=== PATIENT | male | born 1955 | race Caucasian/White ===

== ENCOUNTER 2017-12-31 01:44 | Inpatient (IN) | payer BC, OTHER ==
[2017-12-31] VITALS (13 sets, daily range): BP systolic 96–227; BP diastolic 68–154
[~2017-12-31] VITALS: Ht 165.1 cm; Wt 50.3 kg
[2017-12-31 02:22] LABS: ABSOLUTE BASOPHILS 0.1 thou/uL (0.0-0.2); ABSOLUTE EOSINOPHILS 0.2 thou/uL (0.0-0.7); ABSOLUTE LYMPHOCYTES 4.3 thou/uL (0.8-5.3); ABSOLUTE NEUTROPHILS 9.6 thou/uL (1.6-8.1); BASOPHILS 0.4 %; EOSINOPHILS 1.2 %; HEMOGLOBIN 15.1 gm/dL (14.0-18.0); LYMPHOCYTES 28.4 %; MCH 27.4 pg (26.0-34.0); MCHC 32.1 g/dL (28.0-37.0); MCV 85.3 fL (80.0-100.0); MONOCYTES 6.8 %; MPV 8.7 fl. (7.2-11.1); NUCLEATED RBCS 0 /100WBC; PLATELET COUNT* 221 thou/uL (150-400); POLYS 63.2 %; RBC 5.51 mil/uL (4.50-6.00); RDW-CV 15.8 % (10.5-14.5); WBC 15.1 thou/uL (4.0-11.0)
[2017-12-31] MEDS ORDERED: REQUIP 0.25 M0.25 M1 PO (02:23)
[2017-12-31] MEDS ORDERED: CLONAZEPAM 0.50.5 M1 PO (02:23)
[2017-12-31] MEDS ORDERED: ZOCOR20 MG PO (02:23)
[2017-12-31] MEDS ORDERED: CARVEDILOL6.25 M1 PO (02:24)
[2017-12-31] MEDS ORDERED: DULERA 200 MCG/13 GM INH (02:24)
[2017-12-31] MEDS ORDERED: NORVASC5 MG PO (02:24)
[2017-12-31] MEDS ORDERED: VENTOLIN HFA 1818 GM INH (02:24)
[2017-12-31] MEDS ORDERED: ALBUTEROL2.5 MG/31 INH (02:25)
[2017-12-31 02:40] LABS: INR 1.1; PROTIME 10.8 Seconds (9.20-11.50)
[2017-12-31 02:44] LABS: ANION GAP 9 mmol/L (7-16); BUN 20 mg/dL (7-18); CALCIUM 8.9 mg/dL (8.5-10.1); CHLORIDE 102 mmol/L (98-107); CO2 27 mmol/L (21-32); CREATININE 1.1 mg/dL (0.6-1.3); GLUCOSE 232 mg/dL (70-99); POTASSIUM 4.2 mmol/L (3.5-5.1); SODIUM 138 mmol/L (136-145)
[2017-12-31 02:55] LABS: ALBUMIN 3.6 g/dL (3.4-5.0); ALKALINE PHOSPHATASE 175 U/L (46-116); NT-PRO BRAIN NAT PEPTIDE 5904 pg/mL (<300); SGOT 51 U/L (15-37); SGPT 37 U/L (30-65); TOTAL BILIRUBIN 0.7 mg/dL (<0.1-1.0); TOTAL PROTEIN 7.5 g/dL (6.4-8.2); TROPONIN-I LEVEL <0.06 ng/mL (<0.06)
[2017-12-31 02:55] LABS: URINE BILIRUBIN NEGATIVE (Negative); URINE BLOOD 1+ (Negative); URINE CLARITY CLEAR; URINE COLOR YELLOW; URINE GLUCOSE-RANDOM 1+ (Negative); URINE KETONES NEGATIVE (Negative); URINE LEUKOCYTES-REFLEX NEGATIVE (Negative); URINE NITRITE-REFLEX NEGATIVE (Negative); URINE PROTEIN 3+ (Negative); URINE SPECIFIC GRAVITY 1.025 (1.005-1.030)
[2017-12-31 03:25] LABS: BE -5.2 mmol/L (-2 to +3); HCO3 23.4 mmol/L (22.0-26.0)
[2017-12-31 03:26] LABS: PCO2 59.1 mmHg (35.0-45.0); PO2 > 488.8 mmHg (75.0-100.0); pH 7.215 (7.340-7.450)
[2017-12-31 04:19] LABS: FINE GRANULAR CASTS 4-10 Moderate /LPF (None Seen); SQUAMOUS 0-3 Few /LPF (0-3)
[2017-12-31 04:20] LABS: URINE RBC 3-10 Few /HPF (0-2); URINE WBC-REFLEX 6-15 Few /HPF (0-5)
[2017-12-31 04:21] LABS: BACTERIA-REFLEX 1-9 Few /HPF (None Seen); CRYSTALS None Seen /LPF (None Seen)
--- NOTE | 2017-12-31 10:24 | EKG ---
[place] [address] ELECTROCARDIOGRAM REPORT Name: MIKA GONZALES Room: [address] ADM IN M.R.#: [id number] Admission: 12/31/17 Attend Phys: Aditya Vila, Discharge: Date of : 59 Report #: [id number] THIS REPORT FOR: //name// [facility] ED Test Date: 2017-12-31 Test Time: 01:49:12 Pat Name: MIKA GONZALES Department: Room: [facility] Gender: M Photo Stylist: : 1955 Requested By: Elizabeth Mccauley Order Number: [id number] MD: Moris Mir Measurements Intervals [place] Rate: 150 P: 88 [place]: 125 QRS: 86 QRSD: 89 T: -65 QT: 279 QTc: 441 Interpretive Statements Sinus tachycardia LAE, consider biatrial enlargement Borderline right axis deviation Abnormal R-wave progression, late transition Probable left ventricular hypertrophy Abnormal T, consider ischemia, inferior leads Borderline ST elevation, lateral leads No previous ECG available for comparison Electronically Signed On 12-31-2017 10:24:42 DIRECTOR OF SEARCH ENGINE MARKETING by Moris Mir [email or web address] <ELECTRONICALLY SIGNED> By: Moris Mir MD, FACC 12/31/17 [phone] Moris Mir MD, FAC /EPI
[2017-12-31 13:13] LABS: BE -2.4 mmol/L (-2 to +3); HCO3 23.7 mmol/L (22.0-26.0); PCO2 45.9 mmHg (35.0-45.0); PO2 92.2 mmHg (75.0-100.0); pH 7.331 (7.340-7.450)
--- NOTE | 2017-12-31 17:37 | NUR ---
PT CARE ASSUMED AFTER REPORT. SR ON MONITOR. PT ON VENTILATOR AND SEDATED. OG TO BRITNI. NICO TO DD. RESTRAINTS TO BILAT UE. PASSIVE ROM GIVEN. FALL PRECAUTIONS IN PLACE. SLOW TO PROGRESS TOWARDS GOALS.
[2018-01-01] VITALS (24 sets, daily range): BP systolic 130–185; BP diastolic 61–102
[2018-01-01 02:29] LABS: HEMATOCRIT 37.1 % (42.0-52.0); MCH 27.4 pg (26.0-34.0); MCHC 32.7 g/dL (28.0-37.0); MCV 83.8 fL (80.0-100.0); MPV 8.2 fl. (7.2-11.1); NUCLEATED RBCS 0 /100WBC; PLATELET COUNT* 171 thou/uL (150-400); RBC 4.43 mil/uL (4.50-6.00); RDW-CV 15.3 % (10.5-14.5); WBC 6.8 thou/uL (4.0-11.0)
[2018-01-01 02:33] LABS: HEMOGLOBIN 12.1 gm/dL (14.0-18.0)
[2018-01-01 02:41] LABS: PHOSPHORUS* 4.6 mg/dL (2.5-4.9)
[2018-01-01 02:45] LABS: ALBUMIN 2.7 g/dL (3.4-5.0); CALCIUM 8.8 mg/dL (8.5-10.1); CREATININE 1.2 mg/dL (0.6-1.3); MAGNESIUM 1.6 mg/dL (1.8-2.4); TOTAL BILIRUBIN 0.4 mg/dL (<0.1-1.0); TOTAL PROTEIN 5.9 g/dL (6.4-8.2)
[2018-01-01 05:06] LABS: ABSOLUTE LYMPHOCYTES 0.3 thou/uL (0.8-5.3); ABSOLUTE MONOCYTES 0.1 thou/uL (0.0-1.2); ABSOLUTE NEUTROPHILS 6.4 thou/uL (1.6-8.1); ATYPICAL LYMPHS 1 %
[2018-01-01 05:07] LABS: ANISOCYTOSIS 1+; PLATELET ESTIMATE ADEQUATE
[2018-01-01 08:51] LABS: HCO3 24.2 mmol/L (22.0-26.0); PO2 108.8 mmHg (75.0-100.0)
--- NOTE | 2018-01-01 11:00 | NUR ---
PT ADMITTED YESTERDAY WITH RESP FAILURE, WAS INTUBATED IN THE E.D. AND REMAINS ON THE VENT. SPOKE WITH AT BEDSIDE, EXPLAINED ROLE OF CASE MGT. SHE SAID SHE HAS NO QUESTIONS ABOUT PLAN OF CARE. PT HAS HOME O2 FROM [facility]. SAID SHE NEEDS TO BE AT AN APPT IN THE MORNING BUT HER SON WILL COME SIT WITH PATIENT.
--- NOTE | 2018-01-01 11:24 | NUR ---
Nutrition: Pt assessed for Rocael score 11. On vent, propofol at 13cc. OG to LIS. Solumedrol. BG 140, alb 2.7, TG 76. H/o COPD, PVD, smoker, recent PNA. Admitted with SOA. ?malignancy in Rt lung. Per ICU rounds, possible extubation today. RD will follow POC and give nutrition support recs if needed, follow up 01/02/18.
--- NOTE | 2018-01-01 12:42 | CON ---
[address] [address] CONSULTATION Name: MIKA GONZALES Room: [address] IN M.R.#: [id number] Admission: 12/31/17 Attend Phys: Aditya Vila, Discharge: Date of : 59 Report #: [id number] THIS REPORT FOR: //name// CC: Kiel Vila DATE OF SERVICE: 12/31/2017 REQUESTING PHYSICIAN: Carson Villar MD HISTORY OF PRESENT ILLNESS: The patient is a 62-year-old gentleman admitted with acute respiratory failure secondary to COPD exacerbation, currently on the ventilator, unable to provide further history. He is ventilating and oxygenating adequately, is sedated with high dose propofol at 80, takes clonazepam at home. There is a mass-like lesion noted at the right lung apex on the CT chest. PAST MEDICAL HISTORY: COPD, hyperlipidemia, hypertension. Further details of COPD, not available. SOCIAL HISTORY: Active smoker. CURRENT MEDICATIONS: List in [facility] reviewed. HOME MEDICATIONS: List in [facility] reviewed. Also see discussion above. ALLERGIES: No known drug allergies. PHYSICAL EXAMINATION: GENERAL: The patient is deeply sedated on RASS 3 to RASS -4. Vitals in the records reviewed. Ventilator settings reviewed. Endotracheal tube was in good position. NECK: Does not show raised JVP. CHEST: Breath sounds decreased, but equal bilaterally. HEART: Regular, no murmur. ABDOMEN: Soft and nontender. EXTREMITIES: Lower extremities: No edema, no calf tenderness. IMAGING: CT chest films as well as reports reviewed. LABORATORY DATA: The patient's lab work including arterial blood gas consistent with rytcj-sx-gqaoxqy hypercarbic respiratory failure in [facility] reviewed. ASSESSMENT AND PLAN: 1. Eeplz-lo-frpuplk hypercarbic respiratory failure. I recommend that we should go ahead and repeat arterial blood gas now and [place] [address] CONSULTATION Name: MIKA GONZALES TRINY Room: [address] IN [facility].#: [id number] Admission: 12/31/17 Attend Phys: Aditya Vila, Discharge: Date of : 59 Report #: [id number] We will like to being propofol infusion down to at least below 50 if possible. Therefore, p.r.n. Versed and fentanyl are ordered. 2. Chronic obstructive pulmonary disease exacerbation. He remains on Solu-Medrol, as well as nebulized bronchodilators. We will continue. 3. Pulmonary infiltrates. Small pulmonary infiltrates are noted. The patient is on Zosyn as well as Levaquin. Levaquin, I understand, is ordered to be switched to p.o. tomorrow if the patient remains on the ventilator. We will consider still keeping it IV. However, if the patient's condition improves, it may be possible to discontinue Zosyn and cut down to one antibiotic only. If culture from sputum has not already been performed, then I recommend the same. 4. Large lung nodules/lung mass. This is noted at the right lung apex, could be an area of scar, as well as infiltrate, as well as malignancy. The patient will be high risk for performing a biopsy. Options include either doing a followup CT or obtaining a PET scan. Perhaps, I would favor obtaining a PET scan shortly after recovery from current episode. 5. Deep venous thrombosis prophylaxis, Lovenox. 6. Gastrointestinal prophylaxis: Protonix is ordered as a tablet, which is not absorbed if crushed and therefore, I switched it to IV for now. 7. Fluid and electrolytes. The patient currently is on IV fluids at 130 mL an hour. While he does not appear to be fluid overloaded, I favor cutting down and fluid rate soon to avoid development of fluid overload. We will also check an echocardiogram. The patient is critically ill at this time. Total time spent for this critically ill patient today is 35 minutes. <ELECTRONICALLY SIGNED> By: Frances Valverde MD 01/01/18 1242 1031 0018Akan Banda MD /nt
--- NOTE | 2018-01-01 14:41 | NUR ---
WOUND NURSE: PER STAFF NURSE PATIENT HAS NO WOUNDS AND BILL SCALE TRIGGERED WOUND CONSULT. PATIENT IS ON LOW AIRLOSS MATTERESS AND TURN SCHEDULE.
--- NOTE | 2018-01-01 16:54 | 2DMMODE ---
[place] [address] 2 D/M-MODE ECHOCARDIOGRAM Name: MIKA GONZALES Room: [facility] IN [facility]#: [id number] Admission: 12/31/17 Attend Phys: Aditya Diggs Discharge: Date of : 59 Date of Service: 01/01/18 1654 Report #: [id number] THIS REPORT FOR: //name// APPROVED REPORT Study performed: 01/01/2018 10:22:15 EXAM: Comprehensive 2D, Doppler, and color-flow Echocardiogram Patient Location: In-Patient Room #: [facility] Status: routine BSA: 1.56 HR: 78 bpm BP: 180/102 mmHg Rhythm: NSR Other Information Study Quality: Good Indications Dyspnea 2D Dimensions IVSd: 10.36 (7-11mm) LVOT Diam: 24.70 (18-24mm) LVDd: 48.86 mm PWd: 11.85 (7-11mm) Ascending Ao: 26.91 (22-36mm) LVDs: 37.05 (25-40mm) Aortic Root: 32.56 mm Volumes Left Atrial Volume (Systole) LA ESV Index: 30.20 mL/m2 Aortic Valve AoV Peak Ar.: 3.17 m/s AO Peak Gr.: 40.29 mmHg LVOT Max P.36 mmHg AO Mean Gr.: 23.72 mmHg LVOT Mean P.74 mmHg LVOT Max V: 0.58 m/s AO V2 VTI: 65.73 cm LVOT Mean V: 0.40 m/s DELFINO (VTI): 1.03 cm2 LVOT V1 VTI: 14.15 cm Mitral Valve E/A Ratio: 0.70 MV Decel. Time: 203.05 ms MV E Max Ar.: 0.51 m/[place] [address] 2 D/M-MODE ECHOCARDIOGRAM Name: MIKA GONZALES Room: [address] IN .R.#: [id number] Admission: 12/31/17 Attend Phys: Aditya Diggs Discharge: Date of : 59 Date of Service: 01/01/18 1654 Report #: [id number] MV PHT: 58.88 ms MVA (PHT): 3.74 cm2 TDI E/Lateral E': 7.29 E/Medial E': 8.50 Medial E' Ar.: 0.06 m/s Lateral E' Ar.: 0.07 m/s Pulmonary Valve PV Peak Ar.: 0.64 m/s PV Peak Gr.: 1.65 mmHg Tricuspid Valve RAP Estimate: 10.00 mmHg TR Peak Gr.: 33.85 mmHg RVSP: 43.00 mmHg PA Pressure: 43.00 mmHg Left Ventricle The left ventricle is normal size. There is normal LV segmental wall motion. Moderate concentric left ventricular hypertrophy. Left ventricular systolic function is mildly decreased. LVEF is 45%. Grade I - abnormal relaxation pattern. Right Ventricle The right ventricle is normal size. The right ventricular systolic function is normal. Atria The left atrium size is normal. The right atrium size is normal. Aortic Valve Moderate aortic valve sclerosis. Trace aortic regurgitation. Mild to moderate aortic stenosis. Mitral Valve The mitral valve is normal in structure. Mild mitral regurgitation. No evidence of mitral valve stenosis. Tricuspid Valve The tricuspid valve is normal in structure. Mild tricuspid regurgitation. Moderate pulmonary hypertension. Pulmonic Valve The pulmonary valve is normal in structure. There is no pulmonic [place] [address] 2 D/M-MODE ECHOCARDIOGRAM Name: MIKA GONZALES Room: [address] IN [facility]#: [id number] Admission: 12/31/17 Attend Phys: Aditya Diggs Discharge: Date of : 59 Date of Service: 01/01/18 1654 Report #: [id number] Great Vessels The aortic root is normal in size. IVC is dilated. Pericardium There is no pericardial effusion. <Conclusion> The left ventricle is normal size. Moderate concentric left ventricular hypertrophy. Left ventricular systolic function is mildly decreased. LVEF is 45%. Grade I - abnormal relaxation pattern. The right ventricle is normal size. The left atrium size is normal. Moderate aortic valve sclerosis. Trace aortic regurgitation. Mild to moderate aortic stenosis. The mitral valve is normal in structure. Mild mitral regurgitation. The tricuspid valve is normal in structure. IVC is dilated. There is no pericardial effusion. There is normal LV segmental wall motion. <ELECTRONICALLY SIGNED> By: Ben Resendez MD, [facility] 01/01/181653 53 53 Ben Resendez MD, FACC /INF
--- NOTE | 2018-01-01 18:44 | NUR ---
PT ASSESSMENT CHARTED. VSS THROUGHOUT SHIFT. Q2H TURNS TO MAINTAIN SKIN INTEGRITY. LOW AIRLOSS ON BED AND WOUND CONSULT PLACED. SKIN IS CLEAN, DRY AND INTACT. PT DID NOT APPEAR TO BE IN ANY PAIN. SEDATION VACATION THIS MORNING, PT OPENED EYES AND SQUEEZED HANDS APPROPRIATLEY. WEANING TRIAL SCHEDULED FOR MORNING. FAMILY AT THE BEDSIDE THROUGHOUT THE SHIFT.
[2018-01-02] VITALS (25 sets, daily range): BP systolic 139–205; BP diastolic 68–116
[2018-01-02 04:49] LABS: ABSOLUTE LYMPHOCYTES 0.9 thou/uL (0.8-5.3); ABSOLUTE MONOCYTES 0.3 thou/uL (0.0-1.2); BASOPHILS 0.2 %; HEMATOCRIT 43.9 % (42.0-52.0); LYMPHOCYTES 10.1 %; MCH 27.9 pg (26.0-34.0); MCHC 32.2 g/dL (28.0-37.0); MCV 86.5 fL (80.0-100.0); MONOCYTES 3.7 %; MPV 8.6 fl. (7.2-11.1); NUCLEATED RBCS 0 /100WBC; PLATELET COUNT* 178 thou/uL (150-400); RBC 5.07 mil/uL (4.50-6.00); RDW-CV 15.9 % (10.5-14.5); WBC 9.3 thou/uL (4.0-11.0)
[2018-01-02 05:22] LABS: HEMOGLOBIN 14.1 gm/dL (14.0-18.0)
[2018-01-02 05:48] LABS: PREALBUMIN 18.5 mg/dL (18.0-35.7)
--- NOTE | 2018-01-02 06:53 | NUR ---
Suction copious amts of thick peralta sputum, especially after turns. Also has copious amts of clr thick oral secretions. Bath given at 0400. Polanco draining clear green urine, containing some sediment. Intake 1818, output 475. BP 190s-200s/100s after bath; prn dose of hydralazine given. Latest BP 144/83. Weaning trial planned for today. Will continue to monitor.
--- NOTE | 2018-01-02 08:18 | NUR ---
2475 ASSUMED CARE OF PATIENT. PLEASE SEE DOCUMENTED ASSESSMENT. PLAN IS FOR VENTILATOR WEANING TRIAL.
--- NOTE | 2018-01-02 08:19 | NUR ---
0745 PROPOFOL OFF FOR VENT TRIAL.
--- NOTE | 2018-01-02 08:19 | NUR ---
0805 STARTED WEANING TRIAL
--- NOTE | 2018-01-02 08:47 | NUR ---
DR ORANTES PRESENT. LASIX GIVEN
[2018-01-02 08:52] LABS: BE -0.3 mmol/L (-2 to +3); HCO3 24.9 mmol/L (22.0-26.0); PCO2 42.4 mmHg (35.0-45.0); PO2 131.9 mmHg (75.0-100.0); pH 7.386 (7.340-7.450)
--- NOTE | 2018-01-02 08:55 | NUR ---
DR ROLANDA STOCKTON ABG. WILL EXTUBATE
--- NOTE | 2018-01-02 09:29 | NUR ---
0905 EXTUBATED AND OG REMOVED. RESTRAINTS OFF. O2 PLACED AT 5LPM NASAL CANNULA. SON HERE
--- NOTE | 2018-01-02 10:43 | NUR ---
Nutrition: follow up note. Pt is now extubated. Per ICU rounds, will do swallow eval later today.
--- NOTE | 2018-01-02 11:13 | NUR ---
SWALLOW EVAL CHARTED. HEADACHE TREATED WITH TYLENOL
--- NOTE | 2018-01-02 13:20 | NUR ---
PATIENT ABLE TO FEED SELF. SPOUSE PRESENT.
--- NOTE | 2018-01-02 15:38 | NUR ---
1445 DR MORILLO HERE TO SPEAK WITH PATIENT. LABORATORY MECHANIC HELPER ALSO HAS BEEN HERE TO SPEAK WITH PATIENT AND SPOUSE. NEW ORDERS NOTED.
--- NOTE | 2018-01-02 17:20 | NUR ---
PATIENT PORGRESSING TOWARDS GOALS. EXTUBATED THIS MORNING AND ON 4LPM NASAL CANNULA WHICH IS HOME OXYGEN SETTING. HAS AVAPS ON STANDBY. PASSED BEDSIDE SWALLOW EVAL AND DIET RESUMED. RECEIVED LASIX THIS AM AND HAS DIURESED. EPISODE OF ANXIETY THIS AFTERNOON. PT SPOKE WITH DR MORILLO AND JARRED ADJUSTED. FAMILY HAS VISITED
--- NOTE | 2018-01-02 20:02 | NUR ---
Pt pleasant and conversational. States he is requesting to speak with a "spiritual counselor," but not a casing running machine tender, market news reporter, etc. States he needs someone to whom he can "unload my deepest darkest hurts and secrets." Upon ensuing conversation for further clarification, pt wishes to speak with a psychologist, psychiatrist, or counselor. Told pt that I would pass this request to the oncoming RN in the am; pt verbalizes understanding and expressed gratitude. Will continue to monitor.
[2018-01-03] VITALS (11 sets, daily range): BP systolic 143–185; BP diastolic 68–110
[2018-01-03 02:31] LABS: ABSOLUTE LYMPHOCYTES 0.4 thou/uL (0.8-5.3); ABSOLUTE MONOCYTES 0.3 thou/uL (0.0-1.2); ABSOLUTE NEUTROPHILS 7.1 thou/uL (1.6-8.1); HEMATOCRIT 35.4 % (42.0-52.0); HEMOGLOBIN 11.6 gm/dL (14.0-18.0); LYMPHOCYTES 5.5 %; MCH 27.3 pg (26.0-34.0); MCHC 32.7 g/dL (28.0-37.0); MCV 83.6 fL (80.0-100.0); MONOCYTES 3.7 %; MPV 8.2 fl. (7.2-11.1); NUCLEATED RBCS 0 /100WBC; PLATELET COUNT* 178 thou/uL (150-400); POLYS 90.8 %; RBC 4.24 mil/uL (4.50-6.00); RDW-CV 15.3 % (10.5-14.5); WBC 7.8 thou/uL (4.0-11.0)
[2018-01-03 02:38] LABS: ALBUMIN 2.7 g/dL (3.4-5.0); CALCIUM 8.6 mg/dL (8.5-10.1); CREATININE 1.3 mg/dL (0.6-1.3); POTASSIUM 3.8 mmol/L (3.5-5.1); TOTAL BILIRUBIN 0.4 mg/dL (<0.1-1.0); TOTAL PROTEIN 5.3 g/dL (6.4-8.2)
--- NOTE | 2018-01-03 06:40 | NUR ---
Pt states he was unable to sleep overnight. States xanax helped with relieving anxiety, but not able to sleep more than a "few moments here and there." Reports he will need a laxative/suppository later today. BP 180s/90s at 0400 and 0500. Hydralazine given per prn order. Latest BP 178/82. States he hopes to be transferred to less acute floor today. Will continue to monitor.
--- NOTE | 2018-01-03 17:22 | NUR ---
PATIENT TRANSFERED FROM ICU THIS AM. PATIENT SETTLED TO ROOM. PATIENT DENIES ANY PAIN. PATIENT DENIES ANY TROUBLE BREATHING. PATIENT HAS O2 ON AT 3L/NC. PATIENT BLOOD PRESSURE RUNS HIGH, HYDRALAZINE GIVEN X 1 FOR BP OF 206/120. PATIENT WORKED WITH PHYSICAL AND OCCUPATIONAL THERAPIES. PATIENT HAS GOOD APPETITE. PATIENT DENIES ANY NEEDS AT THIS TIME. CALL LIGHT WITHIN REACH. WILL CONTINUE TO MONITOR.
[2018-01-04] VITALS (14 sets, daily range): BP systolic 114–226; BP diastolic 63–141
--- NOTE | 2018-01-04 03:52 | NUR ---
PATIENT SLEPT WELL DURING THIS SHIFT. PT UP TO BATHROOM AFTER LABS DRAWN. PT SAID HE HAD O2 ON BUT BECAME VERY SOA WHEN AMBULATING. PT FELT HE WAS WALKING TOO FAST BACK TO BED. PT DENIES PAIN/NAUSEA. ANTIBIOTICS INFUSING PER DR ORDER. FREQUENTLY USED ITEMS AND CALL LIGHT WITHIN REACH. SIDERAILS UPX2. WILL CONTINUE TO MONITOR.
[2018-01-04 10:58] LABS: HEMATOCRIT 41.7 % (42.0-52.0); HEMOGLOBIN 13.4 gm/dL (14.0-18.0); MCH 27.2 pg (26.0-34.0); MCHC 32.1 g/dL (28.0-37.0); MCV 84.6 fL (80.0-100.0); MPV 8.2 fl. (7.2-11.1); NUCLEATED RBCS 0 /100WBC; RBC 4.93 mil/uL (4.50-6.00); RDW-CV 15.5 % (10.5-14.5); WBC 14.5 thou/uL (4.0-11.0)
[2018-01-04 11:04] LABS: CALCIUM 8.7 mg/dL (8.5-10.1); CREATININE 1.2 mg/dL (0.6-1.3)
[2018-01-04 11:13] LABS: PLATELET COUNT* 259 thou/uL (150-400)
[2018-01-04 11:15] LABS: ALBUMIN 3.4 g/dL (3.4-5.0); TOTAL PROTEIN 6.7 g/dL (6.4-8.2); TROPONIN-I LEVEL 0.08 ng/mL (<0.06)
--- NOTE | 2018-01-04 11:30 | NUR ---
PATIENT HYPERTENSIVE AND SHORT OF AIR THIS AM. DR ORANTES ROUNDED AND ADDED BREATHING TREATMENTS AND BIPAP. PATIENT BECAME VERY ANXIOUS AND TACHYCARDIC WHEN BIPAP STARTED. DR ORANTES AND DR MORILLO NOTIFIED. NURSING CHEMISTRY TUTOR NOTIFIED AND SPOKE WITH DR MORILLO. ORDERS RECIEVED AND DR MORILLO ROUNDED ON PATIENT. EKG, LABS, CHEST X-RAY, LASIX, ATIVAN, SOLU-MEDROL, CARDIZEM DRIP COMPLETED ORDERED. PATIENT REMAINS TACHYCARDIC BUT IS BREATHING EASIER. REPORT CALLED TO TAO IN ICU. PATIENT TRANSPORTED TO ICU ON BIPAP WITH RT AT THIS TIME.
[2018-01-04 12:12] LABS: ABSOLUTE LYMPHOCYTES 0.9 thou/uL (0.8-5.3); ABSOLUTE MONOCYTES 1.3 thou/uL (0.0-1.2); ABSOLUTE NEUTROPHILS 12.3 thou/uL (1.6-8.1)
[2018-01-04 12:13] LABS: PLATELET ESTIMATE ADEQUATE
--- NOTE | 2018-01-04 14:51 | NUR ---
WOUND NURSE: RECEIVED WOUND CARE CONSULT ON THIS PATIENT. PERFORMED HEAD TO TOE ASSESSMENT AND NO WOUNDS IDENTIFIED.
--- NOTE | 2018-01-04 17:25 | NUR ---
PT TRANSFERED FROM 3W. BIPAP ON PT. PT A/O X4. VOIDS PER URINAL. AT BEDSIDE. PT WITH C/O HEADACHE. PRN TYLENOL GIVEN. CARDIZEM GTT INFUSING. PROGRESSING TOWARDS GOALS.
--- NOTE | 2018-01-04 17:33 | EKG ---
[place] [address] ELECTROCARDIOGRAM REPORT Name: CHRISTIAN,MIKA AGOSTO Room: [address] ADM IN M.R.#: [id number] Admission: 12/31/17 Attend Phys: Aditya Vila, Discharge: Date of : 59 Report #: [id number] THIS REPORT FOR: //name// [facility] Test Date: 2018-01-04 Test Time: 10:20:54 Pat Name: MIKA GONZALES Department: Room: [facility] Gender: M Lead Nurse: : 1955 Requested By: Carson Villar Order Number: [id number] Silvana MD: Moris Mir Measurements Intervals [place] Rate: 136 P: 85 [place]: 116 QRS: 81 QRSD: 87 T: -67 QT: 280 QTc: 422 Interpretive Statements Sinus tachycardia Consider right atrial enlargement Borderline right axis deviation Left ventricular hypertrophy, by voltage Nonspecific T abnormalities, inferior leads Baseline wander in lead(s) V1,V2,V3,V4,V5,V6 Compared to ECG 12/31/2017 01:49:12 Possible ischemia no longer present ST (T wave) deviation no longer present T-wave abnormality still present Electronically Signed On 01-04-2018 17:32:58 [employer] by Moris Mir [email or web address] <ELECTRONICALLY SIGNED> By: Moris Mir MD, [facility] 01/04/18 1732 1020 1020 Moris Mir MD, FAC /EPI
[2018-01-04 18:05] LABS: BE 6.6 mmol/L (-2 to +3); HCO3 32.2 mmol/L (22.0-26.0); PCO2 49.9 mmHg (35.0-45.0); PO2 86.3 mmHg (75.0-100.0); pH 7.428 (7.340-7.450)
[2018-01-05] VITALS (13 sets, daily range): BP systolic 109–128; BP diastolic 64–80
[2018-01-05 04:23] LABS: ABSOLUTE LYMPHOCYTES 0.5 thou/uL (0.8-5.3); ABSOLUTE MONOCYTES 0.2 thou/uL (0.0-1.2); ABSOLUTE NEUTROPHILS 5.8 thou/uL (1.6-8.1); BASOPHILS 0.2 %; EOSINOPHILS 0.1 %; HEMATOCRIT 36.3 % (42.0-52.0); LYMPHOCYTES 7.4 %; MCH 27.5 pg (26.0-34.0); MCHC 33.1 g/dL (28.0-37.0); MCV 83.1 fL (80.0-100.0); MONOCYTES 3.8 %; NUCLEATED RBCS 0 /100WBC; PLATELET COUNT* 200 thou/uL (150-400); POLYS 88.5 %; RBC 4.38 mil/uL (4.50-6.00); RDW-CV 14.8 % (10.5-14.5); WBC 6.5 thou/uL (4.0-11.0)
[2018-01-05 04:44] LABS: ALBUMIN 2.9 g/dL (3.4-5.0); CALCIUM 8.8 mg/dL (8.5-10.1); CREATININE 1.2 mg/dL (0.6-1.3); POTASSIUM 3.8 mmol/L (3.5-5.1); TOTAL BILIRUBIN 0.8 mg/dL (<0.1-1.0); TOTAL PROTEIN 5.6 g/dL (6.4-8.2)
--- NOTE | 2018-01-05 05:26 | NUR ---
PT HAD A RESTFUL NIGHT. PT WORE BIPAP UNTIL AROUND 0415 THEN BACK ON 4L NC. PT SR WITH PACs. PT HAD NO C/O PAIN DURING SHIFT. PT AM LABS REVIEWED. PT STATES HE FEEL MUCH BETTER THAN HE DID YESTERDAY. HOPING TO MAYBE TRANSFER OUT OF ICU HE SAYS.
--- NOTE | 2018-01-05 07:42 | CON ---
[address] [address] CONSULTATION Name: MIKA GONZALES Room: [address] IN M.R.#: [id number] Admission: 12/31/17 Attend Phys: Aditya Vila, Discharge: Date of : 59 Report #: [id number] THIS REPORT FOR: //name// CC: Dr. Gordo Vila TYPE OF REPORT: Cardiology consultation. INDICATION: Acute shortness of breath. HISTORY OF PRESENT ILLNESS: The patient is a very pleasant 62-year-old gentleman with severe COPD. He was admitted to the hospital, was felt to be COPD exacerbation. Review of his echocardiogram here shows that he also has severe aortic stenosis. He has mildly decreased left ventricular systolic function that appears global with LVH. He likely has hypertensive heart disease, chronic diastolic and systolic heart failure as well. He is not having any chest pain. He has not had any history of myocardial infarction. Overnight, he became acutely short of breath. His blood pressure became quite elevated and responded to clonidine. Blood pressure presently well controlled. He was also tachycardic and it has responded nicely to diltiazem. PAST MEDICAL HISTORY: 1. COPD. 2. Asthma. 3. Severe aortic stenosis. 4. Hyperlipidemia. 5. Hypertension. 6. Chronic tobacco use. 7. Peripheral vascular and aortic vascular disease. FAMILY HISTORY: Noncontributory. SOCIAL HISTORY: The patient smokes a pack and half of cigarettes daily. He smoked up to 3 packs of cigarettes daily in the past. Alcohol none. PAST SURGICAL HISTORY: Bilateral iliac and aortic stenting as well as open aortic procedure. REVIEW OF SYSTEMS: A 14-point review of systems is positive for generalized weakness, cough productive of clear to yellow sputum, pneumonia, severe emphysema, dyspnea, orthopnea, lower extremity edema, lung nodule, allergies to MORPHINE and FENTANYL, depression, anxiety and he wears glasses without acute visual loss, otherwise 14-point review of systems is unremarkable. PHYSICAL EXAMINATION: [place] [address] CONSULTATION Name: CHRISTIANMIKA CORNELIUS TRINY Room: [address] IN [facility].#: [id number] Admission: 12/31/17 Attend Phys: Aditya Vila, Discharge: Date of : 59 Report #: [id number] VITAL SIGNS: Presently stable. Blood pressure 143/86 and pulse is 83 and regular. GENERAL: This is a thin gentleman who is in no distress. Mood and affect appropriate. HEENT: The patient is wearing glasses. Extraocular muscles intact. Mucous membranes are moist. NECK: Shows jugular venous distention with a cardiac murmur that radiates to the carotids bilaterally. CHEST: Reveals diffusely decreased breath sounds without wheezes or rales. CARDIOVASCULAR: Reveals a regular rhythm with grade 2/6 systolic ejection murmur. ABDOMEN: Reveals normal bowel sounds. The abdomen is soft and nontender. EXTREMITIES: Shows no edema. SKIN: Warm and dry. RADIOLOGICAL DATA: A 12-lead EKG shows sinus arrhythmia without acute ST or T-wave abnormality. Chest x-ray shows hyperinflated lungs without evidence of pulmonary vascular congestion. Echocardiogram shows EF of 40%-45% with global hypokinesis and mild concentric left ventricular hypertrophy. The patient has severe aortic stenosis with valve area between 0.8 and 0.9 cm2. IMPRESSION AND RECOMMENDATIONS: 1. Acute respiratory failure, multifactorial in origin. He is having chronic obstructive pulmonary disease and emphysema exacerbation. He also has severe aortic stenosis and acute combined heart failure contributing. 2. Qzqaw-ai-eusvrlb combined heart failure. The patient received a single bolus of Lasix with a prompt relief of his symptoms. At this point in time, we will follow clinically. I believe we should treat underlying causes including hypertension and possibly address severe aortic stenosis. 3. Hypertension. I have made multiple adjustments to antihypertensive regimen in an effort to achieve adequate blood pressure control. We will follow in the Intensive Care Unit at this time. 4. Severe aortic stenosis. Outside records are requested. It appears the patient may be nearing time for transcutaneous aortic valve replacement. 5. Peripheral vascular disease, presently stable. Outside records are requested. 6. Chronic tobacco use, cessation discussed and advised. <ELECTRONICALLY SIGNED> By: Moris Mir MD, FACC 01/05/18 0742 1620 2220Miclakshmi Mir MD, FACC /nt
--- NOTE | 2018-01-05 10:31 | NUR ---
PT TO TRANFER TO ROOM 218. REPORT GIVEN TO YOBANI HUNT. ALL BELONGINGS SENT WITH PT.
--- NOTE | 2018-01-05 11:01 | NUR ---
PT TRANSFERRED TO ROOM 218. VSS. CARDIAC MONITORING IN PLACE. AGREE WITH PREV. SENIOR HEALTH EDUCATOR. PT ALERT AND ORIENTED. PT ON 4L PER NC. PT WEARS 4L AT HOME. PT DENIES ANY PAIN. PT IS UP WITH STAND BY ASSISTANCE. PT OREITNED TO ROOM AND CALL LIGHT. PT COMMUNICATES UNDERSTANDING. CALL LIGHT IS WITHIN REACH. WILL CONTINUE TO MONITOR FOR DURATION OF SHIFT.
--- NOTE | 2018-01-05 17:39 | NUR ---
REPORT RECEIVED FROM YBOANI HUNT AT 1600. NO ACUTE CHANGES THROUGHOUT AFTERNOON. REFER TO CHARTING. PT DENIES ANY PAIN OR SHORTNESS OF BREATH. FAMILY AT BEDSIDE THIS EVENING. MEDICATIONS PER APR. PT REPOSITIONS SELF. HOURLY ROUNDING OBSERVED. BED IN LOW POSITION. CALL LIGHT WITHIN REACH. WILL CONTINUE PLAN OF CARE.
[2018-01-05 21:08] LABS: GLYCOHEMOGLOBIN (HGB A1C) 5.6 % (4.8-5.6)
[2018-01-06] VITALS: BP 119/71
[2018-01-06 04:00] VITALS: BP 120/76
--- NOTE | 2018-01-06 04:37 | NUR ---
END SHIFT: PT RESTED WELL. NO COMPLAINTS. NO PAIN. REFUSED BIPAP FOR SLEEP. PT STATED HIS BREATHING WAS "MUCH BETTER AND HE FELT REALLY GOOD." TOLERATING 3-4L HOME DOSE WITH NO SOA AND SATS >94%. PRODUCTIVE COUGH STILL NOTED. SR WITH PAC'S AND PVC'S ON MONITOR. VSS. ASSESSMENT UNCHANGED. SAFETY PRECAUTIONS IN PLACE. CALL LIGHT IN REACH. PERFORMED HOURLY ROUNDING, WILL CONT TO MONITOR.
[2018-01-06 04:50] LABS: HEMATOCRIT 36.9 % (42.0-52.0); HEMOGLOBIN 12.3 gm/dL (14.0-18.0); MCH 27.8 pg (26.0-34.0); MCHC 33.2 g/dL (28.0-37.0); MCV 83.6 fL (80.0-100.0); MPV 8.7 fl. (7.2-11.1); RBC 4.42 mil/uL (4.50-6.00); RDW-CV 14.7 % (10.5-14.5); WBC 12.6 thou/uL (4.0-11.0)
[2018-01-06 05:31] LABS: ALBUMIN 2.8 g/dL (3.4-5.0); CALCIUM 8.7 mg/dL (8.5-10.1); CREATININE 1.3 mg/dL (0.6-1.3); POTASSIUM 3.7 mmol/L (3.5-5.1); TOTAL BILIRUBIN 0.4 mg/dL (<0.1-1.0); TOTAL PROTEIN 5.1 g/dL (6.4-8.2)
[2018-01-06 08:00] VITALS: BP 146/86
--- NOTE | 2018-01-06 08:25 | CON ---
[address] [address] CONSULTATION Name: MIKA GONZALES TRINY Room: [address] M.R.#: [id number] Admission: 12/31/17 Attend Phys: Aditya Vila, Discharge: Date of : 59 Report #: [id number] THIS REPORT FOR: //name// CC: Kiel Vila DATE OF SERVICE: 01/05/2018 REASON FOR CONSULTATION: Renal artery stenosis. HISTORY OF PRESENT ILLNESS: The patient is a pleasant 62-year-old man who was admitted with COPD and pneumonia. He ultimately required intubation and prolonged ICU course, but was ultimately able to be weaned off the vent. He had episodes of accelerated hypertension while here, which has subsequently been controlled with oral antihypertensives. Renal artery duplex suggested high-grade right renal artery stenosis. He is currently resting comfortably in his hospital bed with no major complaints or concerns at this time. Overall feels pretty well. Denies any chest pain, shortness of breath. PAST MEDICAL HISTORY: Significant for COPD, asthma, aortic stenosis, hyperlipidemia, hypertension, peripheral vascular disease, tobacco abuse. FAMILY HISTORY: Reviewed and noncontributory. SOCIAL HISTORY: Smokes about a half pack of cigarettes daily. Prior to this, he had upwards of 3 packs per day, denies any alcohol or recreational drug use. PAST SURGICAL HISTORY: Includes aortobifemoral bypass in the past and right carotid endarterectomy as well. REVIEW OF SYSTEMS: A 12-point review of system performed. The pertinent positives as described in HPI, other systems negative. PHYSICAL EXAMINATION: VITAL SIGNS: Stable. Afebrile. GENERAL: Alert and oriented x 3, no acute distress. HEENT: Normocephalic, atraumatic. Pupils equal, round, reactive to light and accommodation. Extraocular muscles intact. He is wearing corrective lenses. NECK: No JVD or lymphadenopathy, carotid bruits present. HEART: Seems regular rate and rhythm with a systolic ejection murmur. LUNGS: Some decreased breath sounds and wheezes diffusely bilaterally. ABDOMEN: Reveals well-healed midline laparotomy scar; otherwise, soft, nontender, nondistended, normal bowel sounds. EXTREMITIES: [place], warm and well perfused. He has palpable radial pulses bilaterally, palpable femoral pulses bilaterally. 2+ palpable left dorsalis pedis pulse on the left, no palpable pedal pulse on the right, [place] [address] CONSULTATION Name: MIKA GONZALES Room: [address] IN [facility]#: [id number] Admission: 12/31/17 Attend Phys: Aditya Vila, Discharge: Date of : 59 Report #: [id number] capillary refill. IMAGING: Renal artery duplex was reviewed, which demonstrated the right renal artery to have velocity of 500 cm/sec with a ratio of 10, left renal artery had peak systolic velocity of 130 cm/sec with a ratio of 2.6. Again, this will be consistent with a high-grade right renal artery stenosis. ASSESSMENT: Again, the patient is a 62-year-old man with right renal artery stenosis with peripheral vascular disease, chronic obstructive pulmonary disease, and pneumonia. PLAN: At this point, his hypertension appears to be well controlled with oral antihypertensives. I do not think he needs any immediate percutaneous vascular intervention at this time. We will plan to follow this on an outpatient basis. His renal function is normal. We will plan to repeat renal artery duplex in 6 months and reassess how he is doing at that time. Thank you for the consultation. Please call if there are any questions or concerns. <ELECTRONICALLY SIGNED> By: Shane Conway DO 01/06/18 0825 [id number] Conway DO /nt
[2018-01-06] MEDS ORDERED: PULMICORT0.5 MG/2 M INH (11:24)
[2018-01-06] MEDS ORDERED: BROVANA15 MCG/2 M INH (11:24)
[2018-01-06] MEDS ORDERED: PREDNISONE 20 M20 MG PO (11:24)
[2018-01-06] MEDS ORDERED: LEVAQUIN 500 M500 M2 PO (11:24)
[2018-01-06] MEDS ORDERED: IPRAT-ALBUT 0.5-3 ML INH (11:24)
[2018-01-06] MEDS ORDERED: LASIX 40 MG TAB40 M1 PO (11:24)
[2018-01-06] MEDS ORDERED: DILTIAZEM 24HR180 M1 PO (11:24)
[2018-01-06] MEDS ORDERED: CARVEDILOL12.5 MG PO (11:24)
[2018-01-06 11:53] VITALS: BP 139/98
[2018-01-06 12:00] VITALS: BP 139/98
--- NOTE | 2018-01-06 12:11 | NUR ---
Received order from physician to arrange home health. Pt is in network with [facility] and they are able to accept. Faxed H&P, face sheet and orders to [facility]. No other needs identified.
[2018-01-06 14:05] VITALS: BP 110/76
--- NOTE | 2018-01-06 14:41 | NUR ---
PT ALERT, ORIENTED AND ALL VSS ON 3-4 L (BASLINE REQUIREMENT). DENIES PAIN, SOA. PT AND FAMILY EDUCATED ON SAFETY AND PLAN OF CARE. PT AMBULATING IN HALLS THIS SHIFT WITHOUT DIFFICULTY. PLEASE SEE ASSESSMENT FOR ADDITIONAL INFORMATION. PT DC HOME IN STABLE CONDITION AT APPROX [phone] WITH FAMILY AND BELONGINGS.
--- NOTE | 2018-01-06 14:57 | NUR ---
RESUME P.T. ORDERS RECEIVED THIS A.M. PT DISCHARGED HOME WITH FAMILY SUPPORT AND HOME HEALTH THIS AFTERNOON PRIOR TO P.T. RE-EVAL.
== END 2018-01-06 14:40 | disposition home health service (06) | DRG 208 ==
LOC: M.ERS 01:44 → M.ICU 03:11 → M.TBA-ER 03:11 → M.ICU 04:21 → M.3W 01-03 10:57 → M.ICU 01-04 11:20 → M.2W 01-05 10:57
PROVIDERS: Emergency Medicine; Internal Medicine; Internal Medicine Critical Care Medicine; ADMIT Family Medicine
PROC: 5A1945Z Respiratory Ventilation, 24-96 Consecutive Hours (ICD-10-PCS; principal; 2017-12-31)
PROC: 0BH17EZ Insertion of Endotracheal Airway into Trachea, Via Natural or Artificial Opening (ICD-10-PCS; principal; 2017-12-31)
PROC: 5A09357 Assistance with Respiratory Ventilation, Less than 24 Consecutive Hours, Continuous Positive Airway Pressure (ICD-10-PCS; 2018-01-04)
PROC: 5A09357 Assistance with Respiratory Ventilation, Less than 24 Consecutive Hours, Continuous Positive Airway Pressure (ICD-10-PCS; 2018-01-05)
DX: J18.9 Pneumonia, unspecified organism (principal); J96.22 Acute and chronic respiratory failure with hypercapnia; I50.43 Acute on chronic combined systolic (congestive) and diastolic (congestive) heart failure; J44.1 Chronic obstructive pulmonary disease with (acute) exacerbation; J44.0 Chronic obstructive pulmonary disease with (acute) lower respiratory infection; R65.10 Systemic inflammatory response syndrome (SIRS) of non-infectious origin without acute organ dysfunction; I11.0 Hypertensive heart disease with heart failure; E78.5 Hyperlipidemia, unspecified; F17.210 Nicotine dependence, cigarettes, uncomplicated; R91.8 Other nonspecific abnormal finding of lung field; I73.9 Peripheral vascular disease, unspecified; I35.0 Nonrheumatic aortic (valve) stenosis; I70.1 Atherosclerosis of renal artery; F41.9 Anxiety disorder, unspecified; Z95.820 Peripheral vascular angioplasty status with implants and grafts; Z79.899 Other long term (current) drug therapy; Z71.6 Tobacco abuse counseling; Z23 Encounter for immunization